=== PATIENT | female | born 1990 | race Caucasian/White ===

== ENCOUNTER 2020-10-02 18:33 | Emergency (ER) | payer SELFPAY ==
[2020-10-02 19:02] VITALS: BP 179/102; PULSE 87; RESP 16; TEMP 36.6; O2SAT 100; BMI 31.0
--- NOTE | 2020-10-02 19:07 | DI.RAD.S_ITS ---
PROCEDURE: XR ANKLE RT MIN 3V INDICATIONS: fell in a hole hiking TECHNIQUE: 3 views of the ankle were acquired. COMPARISON: [facility], , ANKLE 3 VIEWS RIGHT, 07/18/2015, 22:28. FINDINGS: Bones: No fractures or dislocations. Ankle mortise is normally aligned. No suspicious bony lesions. Soft tissues: Small tibiotalar joint effusion. Achilles tendon appears normal. Soft tissue swelling. IMPRESSION: No fracture or dislocation. Soft tissue swelling and small joint effusion. If clinical symptoms persist or clinical suspicion for pathology is high, a repeat examination in 7-10 days, or advanced imaging such as CT or MRI is suggested for further evaluation. Dictated by: Cr Arias M.D. on 10/02/2020 at 20:39 Approved by: Cr Arias M.D. on 10/02/2020 at 20:40
--- NOTE | 2020-10-02 21:03 | ED.LOWEXIN ---
HPI - Extremity Injury (Lower) General Chief Complaint: Extremity Injury, Lower Stated Complaint: Thinks Broke Rt Foot Time Seen by Provider: 10/02/20 21:02 Source: patient Mode of arrival: Ambulatory Limitations: no limitations History of Present Illness HPI Narrative: This is a 30-year-old female comes emergency department concern for broken foot. Patient states she was hiking on Friday, 3 days ago when she stepped in a hole. She states that she inverted her ankle. She has pain over the medial malleolus but also somewhat over the dorsum of the foot. She also has significant bruising and swelling. Patient has been wearing a ortho boot since then but has quite a bit of pain with weight-bearing. No numbness or tingling. No weakness. 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 No daily medications. No allergies to medications. She does smoke, she drinks alcohol intermittently, occasional marijuana. She states she has broken that ankle in the past. Related Data Previous Rx's Medication Instructions Recorded gentamicin 1 drp OPH Q4HWA #5 ml 05/21/17 gentamicin [Gentak] 0.5 inch OPH HS #3.5 gm 05/21/17 Allergies Allergy/AdvReac Type Severity Reaction Status Date / Time No Known Drug Allergies Allergy Verified 10/02/20 21:17 Review of Systems Review of Systems ROS Unobtainable: All systems reviewed & are unremarkable except as noted in HPI and below Patient History Social History Smoking Status: Current every day smoker Smoking Status: Current every day smoker alcohol intake frequency: a few times a week Substance Use Type: marijuana Exam Narrative Exam Narrative: GENERAL: Alert and oriented x three, well-nourished female in mild distress. HEENT: Head normocephalic, atraumatic, EOMI, pupils reactive, face symmetric, moist mucous membranes NECK: Supple, full range of motion CARDIOVASCULAR: Regular rate and rhythm without murmurs, rubs or gallops. RESPIRATORY: Breath sounds equal bilaterally, no wheezes rales or rhonchi. EXTREMITIES: Normal range of motion, neurovascularly intact. 2+ dorsalis pedis. Patient has pain over the medial malleolus. She also has pain over the 3rd 4th and 5th metatarsals. She has significant bruising of the ankle and foot and into the toes. And she has swelling of the ankle and dorsum of the foot. NEUROLOGICAL: Cranial nerves II through XII grossly intact. Moving all extremities SKIN: Warm, dry, no petechiae, no rashes or lesions other than some small very superficial abrasions and scrapes over her right lower extremity and leg. Initial Vital Signs Initial Vital Signs: Vital Signs Temperature 97.8 F 10/02/20 19:02 Pulse Rate 87 10/02/20 19:02 Respiratory Rate 16 10/02/20 19:02 Blood Pressure 179/102 H 10/02/20 19:02 Pulse Oximetry 100 10/02/20 19:02 Course Orders Ordered: ED Orders 10/02/20 19:07 XR ankle RT min 3V Stat 10/02/20 21:08 XR foot RT min 3V Stat Discontinued Medications Hydrocodone Bitart/Acetaminophen (Hydrocodone/Acet 5/325 Prepack) 1 bottle MISC SEEINSTR ONE Stop: 10/02/20 22:08 Last Admin: 10/02/20 22:24 Dose: 1 bottle Documented by: MAURICIO Ibuprofen (Ibuprofen 400 Mg Tablet) 800 mg PO NOW ONE Stop: 10/02/20 21:09 Last Admin: 10/02/20 21:18 Dose: 800 mg Documented by: MAURICIO Vital Signs Vital signs: Vital Signs - 8 hr 10/02/20 19:02 Temperature 97.8 F Pulse Rate 87 Respiratory Rate 16 Blood Pressure 179/102 H Pulse Oximetry 100 MDM - Extremity Injury (Lower) Imaging Data Extremity x-ray #1: Radiologist's Impression: [address] [id number] ReportSigned Patient: Abhijeet Vitale RMR#: [id number]: 1990Acct:[id number]/Sex: 30 / FDate of Service: 10/02/20Loc: EDAccession Number: [id number] Procedure: XR ankle RT min 3V Ordering Provider: Aishwarya Carpio D.O. PROCEDURE: XR ANKLE RT MIN 3V INDICATIONS: fell in a hole hiking TECHNIQUE: 3 views of the ankle were acquired. COMPARISON: [facility], ANKLE 3 VIEWS RIGHT, 07/18/2015, 22:28. FINDINGS: Bones: No fractures or dislocations. Ankle mortise is normally aligned. No suspicious bony lesions. Soft tissues: Small tibiotalar joint effusion. Achilles tendon appears normal. Soft tissue swelling. IMPRESSION: No fracture or dislocation. Soft tissue swelling and small joint effusion. If clinical symptoms persist or clinical suspicion for pathology is high, a repeat examination in 7-10 days, or advanced imaging such as CT or MRI is suggested for further evaluation. Dictated by: Cr Arias M.D. on 10/02/2020 at 20:39 Approved by: Cr Arias M.D. on 10/02/2020 at 20:40 Extremity x-ray #2: Radiologist's Impression: [address] [id number] ReportSigned Patient: Abhijeet Vitale RMR#: [id number]: 1990Acct:[id number]/Sex: 30 / FDate of Service: 10/02/20Loc: EDAccession Number: [id number] Procedure: XR foot RT min 3V Ordering Provider: Aishwarya Carpio D.O. PROCEDURE: XR FOOT RT MIN 3V INDICATIONS: pain 3-5 metatarsals, bruising TECHNIQUE: 3 views of the foot were acquired. COMPARISON: [facility], XR ANKLE RT MIN 3V, 10/02/2020, 19:11. FINDINGS: Bones: No fractures or dislocations. No suspicious bony lesions. Soft tissues: No tibiotalar joint effusion. Achilles tendon appears normal. Soft tissue swelling over the lateral malleolus as well as the dorsum of the distal foot. IMPRESSION: Fracture or dislocation. If clinical symptoms persist or clinical suspicion for pathology is high, a repeat examination in 7-10 days, or advanced imaging such as CT or MRI is suggested for further evaluation. Dictated by: Cr Arias M.D. on 10/02/2020 at 21:33 Approved by: Cr Arias M.D. on 10/02/2020 at 21:34 MDM Narrative Medical decision making narrative: 30-year-old female with significant swelling and bruising of her foot and ankle with tenderness over the malleoli as well as metatarsals. No obvious fracture noted on imaging. Patient was placed in a walking boot which she arrived and is her own personal mood. Was given crutches. Plan of for race, NSAIDs and follow-up if no improvement. Did discuss that she may have injured the tendons or ligaments themselves and this can also be quite severe at times and may require additional follow up as well. Discharge Plan Departure Patient Disposition: Home Clinical Impression: Ankle sprain Instructions: DI for Ankle Sprain Activity Restrictions/Additional Instructions: Follow-up with your primary care physician in the next 7-10 days for recheck. You can have small occult fractures that are not initially imaged or visualized if you have repeat x-ray imaging in 7-10 days you can sometimes see bone growing. Take pain medication as prescribed. This medication can make you sleepy do not drive, perform hazardous activities or make any major decisions while taking it. This medication will make you constipated please take a stool softener once to twice daily until stools are soft and regular. Splint Care: Keep splint clean and dry. Elevated affected body part to decrease swelling. OK to use ice pack on the affected body part. Use for 15-20 minutes each time, for 5-6x per day. If you develop worsening pain, numbness, tingling, discoloration of the affected body part, loosen the splint by loosening the VALERIA wrap, and either see your doctor for an urgent re-assessment, or return to the Emergency Department. Return to the Emergency Department for any new or worsening symptoms. Prescriptions: No Action gentamicin 0.3 % drops 1 drp OPHTH Q4HWA Qty: 5 RF: 0 gentamicin [Gentak] 0.3 % ointment 0.5 inch OPHTH HS Qty: 3.5 RF: 0 Stand Alone Forms: Work Release Note
--- NOTE | 2020-10-02 21:08 | DI.RAD.S_ITS ---
PROCEDURE: XR FOOT RT MIN 3V INDICATIONS: pain 3-5 metatarsals, bruising TECHNIQUE: 3 views of the foot were acquired. COMPARISON: [facility], CR, XR ANKLE RT MIN 3V, 10/02/2020, 19:11. FINDINGS: Bones: No fractures or dislocations. No suspicious bony lesions. Soft tissues: No tibiotalar joint effusion. Achilles tendon appears normal. Soft tissue swelling over the lateral malleolus as well as the dorsum of the distal foot. IMPRESSION: Fracture or dislocation. If clinical symptoms persist or clinical suspicion for pathology is high, a repeat examination in 7-10 days, or advanced imaging such as CT or MRI is suggested for further evaluation. Dictated by: Cr Arias M.D. on 10/02/2020 at 21:33 Approved by: Cr Arias M.D. on 10/02/2020 at 21:34
[2020-10-02] MEDS: IBUPROFEN 400 MG TABLET 800 MG PO (21:18)
--- NOTE | 2020-10-02 21:58 | PC.NURSE ---
Patient hurt ankle/foot while hiking Friday around 1800. Has been able to partially bear weight since, but ankle and foot are swollen and bruised.
[2020-10-02] MEDS: HYDROCODONE/ACET 5/325 PREPACK 1 BOTTLE MISC (22:24)
== END 2020-10-02 22:30 | disposition home or self-care (01) ==
PROVIDERS: Emergency Provider Emergency Medicine
DX: S93.401A Sprain of unspecified ligament of right ankle, initial encounter (principal); X50.1XXA Overexertion from prolonged static or awkward postures, initial encounter
CPT/HCPCS: 73610; 73630; 99283

== ENCOUNTER → 2021-01-19 14:39 | Outpatient (CLI) | payer BC, SELFPAY ==
--- NOTE | 2021-01-19 14:41 | DI.RAD.S_ITS ---
PROCEDURE: XR FOOT RT MIN 3V INDICATIONS: pain TECHNIQUE: 3 views of the foot were acquired. COMPARISON: [facility], , XR FOOT RT MIN 3V, 10/02/2020, 21:18. FINDINGS: Bones: No fractures or dislocations. No suspicious bony lesions. Soft tissues: No tibiotalar joint effusion. Achilles tendon appears normal. IMPRESSION: No right foot fracture or dislocation. Dictated by: Armaan Damon M.D. on 01/19/2021 at 14:58 Approved by: Armaan Damon M.D. on 01/19/2021 at 14:59
--- NOTE | 2021-01-19 14:41 | DI.RAD.S_ITS ---
PROCEDURE: XR ANKLE RT MIN 3V INDICATIONS: PAIN TECHNIQUE: 3 views of the ankle were acquired. COMPARISON: [facility], CR, XR ANKLE RT MIN 3V, 10/02/2020, 19:11. FINDINGS: Bones: No fractures or dislocations. Ankle mortise is normally aligned. No suspicious bony lesions. Soft tissues: Lateral ankle soft tissue swelling is seen. No tibiotalar joint effusion. Achilles tendon appears normal. IMPRESSION: Lateral ankle soft tissue swelling. No acute ankle fracture or dislocation. Dictated by: Armaan Damon M.D. on 01/19/2021 at 14:57 Approved by: Armaan Damon M.D. on 01/19/2021 at 14:58
== END ==
LOC: RAD 14:40
PROVIDERS: Referring Provider Nurse Practitioner; Visit Provider Nurse Practitioner
DX: R52 Pain, unspecified (principal); M25.471 Effusion, right ankle
CPT/HCPCS: 73610; 73630

== ENCOUNTER → 2021-07-16 14:22 | Outpatient (CLI) | payer BC, SELFPAY ==
--- NOTE | 2021-07-16 | DI.RAD.S_ITS ---
PROCEDURE: XR LUMBAR SPINE 2-3V INDICATIONS: LOW BACK PAIN TECHNIQUE: 3 views of the lumbar spine were acquired. COMPARISON: None. FINDINGS: Bones: 5 [id number] vertebrae are present. There is normal bony alignment. No vertebral body compression fractures. No suspicious bony lesions. Soft tissues: Overlying bowel gas pattern is normal. No suspicious soft tissue calcifications. IMPRESSION: No osseous lesion. If symptoms and/or clinical suspicion for pathology persists, evaluation with MRI should be considered for further assessment. Dictated by: Bren Raman MD, PhD on 07/16/2021 at 15:16 Approved by: Bren Raman MD, PhD on 07/16/2021 at 15:16
[2021-07-16 16:13] LABS: Add Manual Diff / Slide Review NO; Basophils Absolute Auto 0 /uL (0-100); Basophils Percent Auto 0.5 % (0-2); Eosinophils Absolute Auto 300 /uL (0-450); Eosinophils Percent Auto 3.8 % (2-4); Hematocrit 36.9 % (36-46); Hemoglobin 12.3 g/dL (12.0-16.0); Lymphocytes Absolute Auto 1500 /uL (1100-4500); Mean Corpuscular HGB Conc 33.4 % (30-36); Mean Corpuscular Hemoglobin 28.8 PG (26-34); Mean Corpuscular Volume 86.3 fL (80-100); Monocytes Absolute Auto 300 /uL (0-900); Monocytes Percent Auto 4.8 % (3-14); Neutrophils Absolute Auto 4800 /uL (1500-7000); Neutrophils Percent Auto 68.9 % (50-75); Platelet Count 150 X10^3/uL (150-400); Red Blood Cell Count 4.27 X10^6/uL (4.0-5.2); Red Cell Distribution Width 15.1 % (11.6-14.8); White Blood Cell Count 6.9 X10^3/uL (4.5-11.0)
[2021-07-16 16:59] LABS: Alanine Aminotransferase 18 IU/L (<35); Albumin 4.5 g/dL (3.5-5.0); Albumin Globulin Ratio 1.3 (1.0-2.8); Alkaline Phosphatase 48 U/L (38-126); Aspartate Aminotransferase 30 IU/L (14-36); BUN Creatinine Ratio 14.4 (6-22); Bilirubin Total 0.4 mg/dL (0.2-1.3); Blood Urea Nitrogen 13 mg/dL (7-17); Calcium 9.7 mg/dL (8.4-10.2); Carbon Dioxide 22 mmol/L (22-32); Chloride 104 mmol/L (98-107); Estimated Glomerular Filt Rate > 60.0 mL/min (>60); Globulin 3.5 g/dL (1.7-4.1); Glucose 108 mg/dL (70-100); HEMOLYSIS < 15 (0-50); Potassium 3.7 mmol/L (3.4-5.1); Sodium 135 mmol/L (137-145)
== END ==
LOC: RAD 14:24
PROVIDERS: PCP Physician Assistant; Referring Provider Physician Assistant; Visit Provider Physician Assistant
DX: M54.50 Low back pain, unspecified (principal); R10.12 Left upper quadrant pain
CPT/HCPCS: 36415; 72100; 80053; 85025

== ENCOUNTER → 2021-07-24 14:16 | Outpatient (CLI) | payer BC, SELFPAY ==
--- NOTE | 2021-07-24 | DI.CT.S_ITS ---
PROCEDURE: CT ABDOMEN W CON INDICATIONS: Left upper quadrant pain TECHNIQUE: After the administration of oral and intravenous contrast, 5 mm thick sections acquired from the diaphragms to the iliac crests. 5 mm thick coronal and sagittal reformats were acquired. For radiation dose reduction, the following was used: automated exposure control, adjustment of mA and/or kV according to patient size. COMPARISON: None. FINDINGS: Image quality: Excellent. Lung bases: Lung bases are clear. Heart size is normal. Solid organs: Evaluation of the liver demonstrates no focal hepatic lesions. The gallbladder appears within normal limits without calcified gallstones. Biliary system is non-dilated. Pancreas enhances normally. No peripancreatic fat stranding or fluid collections. No pancreatic duct dilatation. No adrenal nodules. Kidneys demonstrate no hydronephrosis. The spleen is enlarged, measuring up to 14.3 cm in dimension. There is a large oval circumscribed cystic lesion within the spleen measuring up to 12.0 x 9.5 x 10.5 cm. This demonstrates a few foci of cyst wall calcification. There is also suggestion of dependent debris or soft tissue component measuring approximately 1.5 x 1.2 cm on series 2, image 25. Peritoneum and bowel: Visualized bowel loops appear normal in caliber. No free fluid or air. Nodes and vessels: No retroperitoneal or mesenteric adenopathy by size criteria. Aorta and inferior vena cava are normal in size. Bones: No suspicious bony lesions. No vertebral body compression fractures. Miscellaneous: No ventral hernias. IMPRESSION: 1. Splenomegaly with a large circumscribed cystic lesion in the spleen demonstrating peripheral wall calcification and likely small amount of dependent debris. The findings likely represent sequelae of prior infection or trauma. Further characterization may be obtained with a dedicated ultrasound or MRI if clinically indicated. Dictated by: Nile Moran M.D. on 07/24/2021 at 17:27 Approved by: Nile Moran M.D. on 07/24/2021 at 17:30
== END ==
LOC: CT 14:17
PROVIDERS: PCP Physician Assistant; Referring Provider Physician Assistant; Visit Provider Physician Assistant
DX: D73.4 Cyst of spleen (principal); R16.1 Splenomegaly, not elsewhere classified; R10.12 Left upper quadrant pain
CPT/HCPCS: 74160; Q9967

== ENCOUNTER → 2021-09-05 14:15 | Outpatient (CLI) | payer BC, SELFPAY | PROVIDERS: PCP Physician Assistant; Referring Provider Physician Assistant; Visit Provider Physician Assistant | DX: Z01.84 Encounter for antibody response examination (principal); R73.9 Hyperglycemia, unspecified | CPT/HCPCS: 36415; 83036; 86317 ==

== ENCOUNTER → 2022-10-15 16:49 | Outpatient (CLI) | payer BC, SELFPAY ==
--- NOTE | 2022-10-15 16:50 | DI.RAD.S_ITS ---
PROCEDURE: XR ANKLE RT MIN 3V INDICATIONS: rolled ankle, non weightbearing TECHNIQUE: 3 views of the ankle were acquired. COMPARISON: [facility], CR, XR WRIST RT MIN 3V, 10/15/2022, 16:51. [facility], CR, XR FOOT RT MIN 3V, 10/15/2022, 16:51. [facility], CR, XR ANKLE RT MIN 3V, 01/19/2021, 14:38. FINDINGS: Bones: No fractures or dislocations. Ankle mortise is normally aligned. No suspicious bony lesions. The talar dome demonstrates no billy abnormality. Soft tissues: No tibiotalar joint effusion. Achilles tendon appears normal. IMPRESSION: Ankle plain film study within normal limits. If there is point tenderness (or other clinical suspicion for a fracture not seen on these images) then a dedicated CT could be considered for further evaluation, if clinically appropriate. Dictated by: Nathan Mcdonnell M.D. on 10/15/2022 at 16:39 Approved by: Nathan Mcdonnell M.D. on 10/15/2022 at 16:39
--- NOTE | 2022-10-15 16:50 | DI.RAD.S_ITS ---
PROCEDURE: XR WRIST RT MIN 3V INDICATIONS: FOOSH, tender, bruising anterior wrist, normal ROM TECHNIQUE: 4 views of the wrist were acquired. COMPARISON: [facility], CR, XR ANKLE RT MIN 3V, 10/15/2022, 16:51. [facility], CR, XR FOOT RT MIN 3V, 10/15/2022, 16:51. [facility], CR, WRIST MINIMUM 3 VIEWS RIGHT, 05/08/2012, 17:20. FINDINGS: Bones: No fractures or dislocations. No suspicious bony lesions. Scaphoid view: No navicular fractures are seen. Soft tissues: No suspicious soft tissue calcifications. IMPRESSION: No displaced fractures are seen. If there is snuffbox tenderness (or other clinical suspicion for a fracture not seen on these images) then a repeat examination would be recommended in 10 to 14 days, following splinting. Dictated by: Nathan Mcdonnell M.D. on 10/15/2022 at 16:33 Approved by: Nathan Mcdonnell M.D. on 10/15/2022 at 16:35
--- NOTE | 2022-10-15 16:50 | DI.RAD.S_ITS ---
PROCEDURE: XR FOOT RT MIN 3V INDICATIONS: rolled ankle, non weight b, tend/swell 3 4 prox metatarsals TECHNIQUE: 3 views of the foot were acquired. COMPARISON: [facility], , XR FOOT RT MIN 3V, 01/19/2021, 14:38. FINDINGS: Bones: No fractures or dislocations. No suspicious bony lesions. Soft tissues: No tibiotalar joint effusion. Achilles tendon appears normal. IMPRESSION: No acute abnormality of the right foot. Dictated by: Reese Carter M.D. on 10/16/2022 at 12:48 Approved by: Reese Carter M.D. on 10/16/2022 at 12:49
== END ==
LOC: RAD 16:49
PROVIDERS: PCP Physician Assistant; Referring Provider Student in an Organized Health Care Education/Training Program; Visit Provider Student in an Organized Health Care Education/Training Program
DX: S93.401A Sprain of unspecified ligament of right ankle, initial encounter (principal); R26.89 Other abnormalities of gait and mobility; M25.531 Pain in right wrist; M79.671 Pain in right foot; W19.XXXA Unspecified fall, initial encounter
CPT/HCPCS: 73110; 73610; 73630

== ENCOUNTER → 2022-12-13 12:26 | Outpatient (CLI) | payer BC, SELFPAY ==
--- NOTE | 2022-12-13 | DI.RAD.S_ITS ---
PROCEDURE: XR ANKLE RT 2V INDICATIONS: FOOT PAIN TECHNIQUE: 2 views of the ankle were acquired. COMPARISON: [facility], CR, XR FOOT RT MIN 3V, 10/15/2022, 16:51. [facility], CR, XR ANKLE RT MIN 3V, 10/15/2022, 16:51. FINDINGS: Bones: No fractures or dislocations. Ankle mortise is normally aligned. No suspicious bony lesions. Mild osteoarthritic changes noted. Soft tissues: No tibiotalar joint effusion. Achilles tendon appears normal. IMPRESSION: No acute osseous abnormality. Dictated by: Guille Canchola M.D. on 12/13/2022 at 15:46 Approved by: Guille Canchola M.D. on 12/13/2022 at 15:47
--- NOTE | 2022-12-13 | DI.RAD.S_ITS ---
PROCEDURE: XR FOOT RT 2V INDICATIONS: FOOT PAIN TECHNIQUE: 2 views of the foot were acquired. COMPARISON: [facility], CR, XR ANKLE RT MIN 3V, 10/15/2022, 16:51. [facility], CR, XR ANKLE RT 2V, 12/13/2022, 12:43. FINDINGS: Bones: No fractures or dislocations. No suspicious bony lesions. Soft tissues: No tibiotalar joint effusion. Achilles tendon appears normal. IMPRESSION: No acute osseous abnormality. Dictated by: Guille Canchola M.D. on 12/13/2022 at 15:43 Approved by: Guille Canchola M.D. on 12/13/2022 at 15:44
--- NOTE | 2022-12-13 | DI.RAD.S_ITS ---
PROCEDURE: XR WRIST RT 2V INDICATIONS: WRIST PAIN TECHNIQUE: 2 views of the wrist were acquired. COMPARISON: [facility], CR, XR WRIST RT MIN 3V, 10/15/2022, 16:51. FINDINGS: Bones: No fractures or dislocations. No suspicious bony lesions. Soft tissues: No suspicious soft tissue calcifications. Soft tissue swelling. IMPRESSION: No acute osseous abnormality. If there is clinical suspicion for internal derangement, consider MRI for further evaluation. Dictated by: Guille Canchola M.D. on 12/13/2022 at 15:40 Approved by: Guille Canchola M.D. on 12/13/2022 at 15:42
[2022-12-13 13:36] LABS: Alanine Aminotransferase 21 IU/L (<35); Albumin 4.4 g/dL (3.5-5.0); Albumin Globulin Ratio 1.3 (1.0-2.8); Alkaline Phosphatase 49 U/L (38-126); Amylase 60 U/L (30-110); Aspartate Aminotransferase 29 IU/L (14-36); BUN Creatinine Ratio 16.9 (6-22); Bilirubin Total 0.3 mg/dL (0.2-1.3); Blood Urea Nitrogen 11 mg/dL (7-17); Carbon Dioxide 20 mmol/L (22-32); Chloride 108 mmol/L (98-107); Estimated Glomerular Filt Rate > 60 mL/min (>60); Globulin 3.5 g/dL (1.7-4.1); Glucose 108 mg/dL (70-100); HEMOLYSIS < 15 (0-50); Lipase 50 U/L (23-300); Sodium 138 mmol/L (137-145); Total Protein 7.9 g/dL (6.3-8.2)
[2022-12-13 14:18] LABS: Hep C Virus Ab w/Reflex Quant NEGATIVE s/c (NEGATIVE)
[2022-12-15 07:07] LABS: Cholesterol HDL Ratio 2.7 ratio (0.0-4.4); Cholesterol,Total 211 mg/dL (100-199); HDL Cholesterol 77 mg/dL (>39); LDL Cholesterol Cal 118 mg/dL (0-99); Triglycerides 90 mg/dL (0-149); VLDL Cholesterol Cal 16 mg/dL (5-40)
== END ==
PROVIDERS: PCP Nurse Practitioner Family; Referring Provider Nurse Practitioner Family; Visit Provider Nurse Practitioner Family
DX: M25.531 Pain in right wrist (principal); M79.671 Pain in right foot; M25.571 Pain in right ankle and joints of right foot; Z13.220 Encounter for screening for lipoid disorders; Z11.59 Encounter for screening for other viral diseases; D73.4 Cyst of spleen; Z13.1 Encounter for screening for diabetes mellitus
CPT/HCPCS: 36415; 73100; 73600; 73620; 80053; 80061; 82150; 83690; 86803